=== PATIENT | female | born 2000 | race Caucasian/White ===

== ENCOUNTER 2023-08-20 13:51 | Emergency (ER) | payer SELFPAY ==
[~2023-08-20] VITALS: Ht 160 cm; Wt 72.6 kg
[2023-08-20] MEDS ORDERED: CEPHALEXIN500 M1 PO (14:31)
[2023-08-20] MEDS ORDERED: VIBRAMYCIN100 MG PO (14:31)
== END 2023-08-20 14:38 | disposition home or self-care (01) ==
LOC: ED 13:51
DX: L02.211 Cutaneous abscess of abdominal wall (principal)